=== PATIENT | female | born 1980 | race Caucasian/White ===

== ENCOUNTER 2017-07-09 16:07 | Emergency (ER) | payer MEDICAID ==
[2017-07-09] MEDS: IBUPROFEN 800 MG TAB PO (17:19)
== END 2017-07-09 18:30 | disposition home or self-care (01) ==
LOC: FTE 16:07
DX: R07.89 Other chest pain (principal)
CPT/HCPCS: 71010; 93005; 99284-25

== ENCOUNTER 2017-09-16 14:21 | Emergency (ER) | payer MEDICAID ==
[2017-09-16] MEDS: KETOROLAC 60 MG INJ IM (16:26)
== END 2017-09-16 17:49 | disposition home or self-care (01) ==
LOC: FTE 14:21
DX: S49.91XA Unspecified injury of right shoulder and upper arm, initial encounter (principal); W18.39XA Other fall on same level, initial encounter; Y92.9 Unspecified place or not applicable
CPT/HCPCS: 73030; 73030-RT; 96372; 99284-25

== ENCOUNTER 2017-10-04 21:40 | Emergency (ER) | payer SELFPAY, MEDICAID | END 2017-10-05 02:49 | disposition left against medical advice (07) | LOC: FTE 21:40 | DX: Z53.21 Procedure and treatment not carried out due to patient leaving prior to being seen by health care provider (principal) ==

== ENCOUNTER 2017-10-05 15:18 | Emergency (ER) | payer MEDICAID ==
[2017-10-05] MEDS: IBUPROFEN 600 MG TAB PO (19:04)
== END 2017-10-05 19:31 | disposition home or self-care (01) ==
LOC: FTE 19:31
DX: R07.89 Other chest pain (principal)
CPT/HCPCS: 71045; 93005; 99284-25

== ENCOUNTER 2017-12-16 12:04 | Emergency (ER) | payer MEDICAID ==
[2017-12-16 17:04] LABS: URINE BLOOD (Dip) POC Trace-intact (NEGATIVE); URINE GLUCOSE (Dip) POC Negative (NEGATIVE); URINE KETONES (Dip) POC Negative (NEGATIVE); URINE LEUKOCYTE EST (Dip) POC Negative (NEGATIVE); URINE NITRITE (Dip) POC Negative (NEGATIVE); URINE TOTAL PROTEIN POC Negative (NEGATIVE)
[2017-12-16] MEDS: KETOROLAC 30 MG INJ IM (17:15)
[2017-12-16 17:20] LABS: ADD MAN DIFF? NO
[2017-12-16] MEDS: DIAZEPAM 2 MG TAB PO (17:21)
[2017-12-16 17:22] LABS: WHITE BLOOD COUNT 6.8 10^3/ul (4.8-10.8)
[2017-12-16 17:22] LABS: BASOPHILS % 0.6 % (0.0-2.0); EOSINOPHILS # 0.3 10^3/ul (0.0-0.5); HEMATOCRIT 42.4 % (37.0-47.0); HEMOGLOBIN 14.4 g/dl (12.0-16.0); LYMPHOCYTES # 2.4 10^3/ul (0.8-2.9); LYMPHOCYTES % 34.7 % (15.0-51.0); MEAN CORPUSCULAR HEMOGLOBIN 31.5 pg (29.0-33.0); MEAN CORPUSCULAR VOLUME 92.8 fl (82.0-101.0); MONOCYTE # 0.6 10^3/ul (0.3-0.9); MONOCYTES % 8.9 % (0.0-11.0); NEUTROPHIL # 3.5 10^3/ul (1.6-7.5); NEUTROPHILS % 51.7 % (39.0-77.0); PLATELET COUNT 259 10^3/UL (140-415); RED BLOOD COUNT 4.57 10^6/ul (4.20-5.40); RED CELL DISTRIBUTION WIDTH 12.6 % (11.5-14.5)
[2017-12-16 17:43] LABS: ANION GAP 11 (8-16); BLOOD UREA NITROGEN 12 mg/dl (7-20); CALCIUM 8.7 mg/dl (8.4-10.2); CARBON DIOXIDE 32 mmol/L (21-31); CHLORIDE 105 mmol/L (97-110); CREATININE 0.52 mg/dl (0.44-1.00); GLUCOSE 87 mg/dl (70-220); POTASSIUM 3.7 mmol/L (3.5-5.1); SODIUM 144 mmol/L (135-144)
[2017-12-16 17:55] LABS: TROPONIN-I < 0.012 ng/ml (0.000-0.120)
== END 2017-12-16 19:41 | disposition home or self-care (01) ==
LOC: FTE 12:04
DX: R07.89 Other chest pain (principal)
CPT/HCPCS: 71045; 76642; 80048; 81003; 81025; 84484; 85025; 93005; 96372; 99285-25

== ENCOUNTER 2017-12-21 12:06 | Emergency (ER) | payer MEDICAID ==
[2017-12-21 13:59] LABS: UR CLARITY TURBID (CLEAR); UR COLOR RED (YELLOW)
[2017-12-21 14:02] LABS: UR TOTAL PROTEIN (Dip) 3+ mg/dl (NEGATIVE)
[2017-12-21 14:03] LABS: UR GLUCOSE (Dip) 1+ mg/dL (NEGATIVE); UR KETONES (Dip) 1+ mg/dL (NEGATIVE)
[2017-12-21 14:04] LABS: UR BILIRUBIN (Dip) 3+ mg/dL (NEGATIVE); UR BLOOD (Dip) 3+ mg/dL (NEGATIVE); UR NITRITE (Dip) NEGATIVE (NEGATIVE)
[2017-12-21 14:05] LABS: ADD UMIC YES; UR LEUKOCYTE ESTERASE (Dip) 3+ Leu/ul (NEGATIVE); UR UROBILINOGEN (Dip) 2.0 E.U./dL mg/dL (NEGATIVE)
[2017-12-21 14:06] LABS: URINE RBCS >200 /HPF (0)
[2017-12-21 14:07] LABS: UR SQUAMOUS EPITHELIAL CELL FEW /HPF (FEW)
[2017-12-21] MEDS: KETOROLAC 60 MG INJ IM (14:23)
== END 2017-12-21 15:43 | disposition home or self-care (01) ==
LOC: FTE 15:43
DX: N39.0 Urinary tract infection, site not specified (principal)
CPT/HCPCS: 81001; 84703; 96372; 99284-25